=== PATIENT | male | born 1985 | race Caucasian/White ===

== ENCOUNTER 2023-07-20 04:28 | Day surgery (SDC) | payer BC ==
[2023-07-18 11:17] VITALS: BMI 23.9
[2023-07-20 09:49] VITALS: TEMP 98.4
[2023-07-20 10:13] VITALS: BP 103/72; PULSE 72; RESP 17
== END 2023-07-20 10:50 | disposition home or self-care (01) ==
LOC: JASU-ENDO 04:28
PROVIDERS: ATTEND Internal Medicine Gastroenterology
PROC: 0DJD8ZZ Inspection of Lower Intestinal Tract, Via Natural or Artificial Opening Endoscopic (ICD-10-PCS; principal; 2023-07-20 09:00)
DX: Z12.11 Encounter for screening for malignant neoplasm of colon (principal); K64.8 Other hemorrhoids; Z80.0 Family history of malignant neoplasm of digestive organs